=== PATIENT | male | born 1975 | race Caucasian/White ===

== ENCOUNTER 2024-01-24 13:59 | Outpatient (OUT) | payer OTHER, SELFPAY ==
--- NOTE | 2024-01-24 15:05 | P.CN_ITS ---
Consult Note: HPI Data of Consult Patient: new to practice Consult date: 01/24/24 Requesting Physician: Rohit Cordova MD Primary Care Provider: Non-Staff Physician, Consult Narrative Reason for consult: low back, bilateral lower extremity pain Narrative: 48yom who presents for evaluation. longstanding low back and bilateral lower extremity pain. previously saw pain clinic in [place], but has been about 7 years. had injections there that were beneficial. imaging reviewed, which shows previous l5-s1 laminectomy, multiple levels of stenosis, including l5-s1, and multilevel facet arthropathy. continues in a series of provider directed home exercises and chiropractor, which he has attempted >6 weeks without benefit. uses gabapentin 300mg tid. denies adverse med side effects. cc:: CC: Rohit Cordova MD Review of Systems ROS Status of ROS 10 or more systems reviewed and unremark able except as noted in history and below Exam Narrative Exam Narrative: Psych-alert and oriented x 3. Attentive and appropriate, constitutionally normal, displays normal mood and affect per situation. There are no obvious deficits in memory, reasoning, or intellect.? Skin-no obvious rashes, bruising, erythema noted to the patient's area of pain.? Extremities- extremities are warm with minimal edema and palpable pulses. Lumbar-tenderness to palpation noted in the lumbar spine and paraspinal musculature. Pain is elicited with flexion, extension, and lateral rotation of the lumbar spine. Range of motion is diminished with these motions. Facet loading maneuvers are positive.? Strength-noted to be unremarkable with the exception of decreased strength rated at 4 out of 5 in bilateral quadriceps femoris, anterior tibialis. Sensory-no notable sensory deficits in the bilateral lower extremities to touch or pinprick in all dermatomal distributions with the exception to decreased sensation to the bilateral L4, 5 dermatomal distribution Sacroiliac - tender to palpation in bilateral PSIS. Positive Pipo's bilaterally. Positive thigh thrust bilaterally. Coordination remains intact.? Gait remains non-antalgic. Assessment and Plan Assessment and Plan (1) Lumbar stenosis with neurogenic claudication: (2) Sacroiliac joint dysfunction of both sides: Plan 48yom who presents for evaluation. failed conservative measures, as noted. imaging reviewed, as noted. given symptoms and imaging, prudent to attempt bilateral l5-s1 tfesi under fluoroscopic guidance. may even benefit from bilateral sij injection. he is in agreement. meds reviewed. uds obtained. pdmp reviewed. will trial tramadol 50mg bid prn and flexeril 10mg tid prn. follow up after procedure.
== END 2024-01-24 14:00 | disposition home or self-care (01) ==
PROVIDERS: Visit Provider Anesthesiology
DX: M48.062 Spinal stenosis, lumbar region with neurogenic claudication (principal); M53.3 Sacrococcygeal disorders, not elsewhere classified
CPT/HCPCS: G0463

== ENCOUNTER → 2024-01-31 06:54 | Day surgery (SDC) | payer OTHER, SELFPAY ==
--- NOTE | 2024-01-31 07:05 | PC.NURSE ---
Upon arrival pt decided he had too much work to do this week and could not take the chance of having increased pain. Pt informed to call us to get rescheduled
== END | disposition home or self-care (01) ==
LOC: SURGOUT 06:54
PROVIDERS: Visit Provider Anesthesiology
DX: M48.061 Spinal stenosis, lumbar region without neurogenic claudication (principal); Z53.29 Procedure and treatment not carried out because of patient's decision for other reasons
CPT/HCPCS: 64483